=== PATIENT | male | born 1985 | race African-American/Black ===

== ENCOUNTER 2016-09-09 07:55 | Emergency (ER) | payer BC, OTHER ==
[~2016-09-09] VITALS: Ht 193 cm; Wt 95.0 kg
[~2016-09-09 07:55] MED LIST: BENZ100 PO; IBUP-232 PO; PENI500T PO; TYLE3 PO; Z.0.NO CURRENT MEDS; ZITH250T PO
[2016-09-09 07:58] VITALS: BP 127/81; PULSE 84; RESP 20; TEMP 98; O2SAT 96
[2016-09-09] MEDS ORDERED: CYCL5TAB PO (08:09)
[2016-09-09] MEDS ORDERED: KETOROLAC TROMETHAMINE 60 MG/2 ML (IM) VIAL IM ONE (08:15)
[2016-09-09] MEDS ORDERED: CYCL1TAB29 PO (08:15)
[2016-09-09] MEDS ORDERED: ORPHENADRINE INJ 60 MG/2 ML AMP IM ONE (08:15)
[2016-09-09] MEDS ORDERED: NAPR500T PO (08:15)
--- NOTE | 2016-09-09 08:17 | PD ---
HPI Chief Complaint: Back/ Neck Pain or Injury Time Seen by Provider: 08:15 Travel History International Travel<30 days: No Contact w/Intl Traveler<30days: No Traveled to known affect area: No History of Present Illness HPI 31-year-old male presents to the emergency department for evaluation of left lower back pain for 1 day. Patient states that yesterday he picked up a box and turned his torso and after he did this he felt pain in his left lower back. Describes it as a spasm and sharp pain. States it has been constant since yesterday aggravated with movement. Denies any alleviating factors. States that he does have a history of muscle spasms in his lower back. States that he took a Flexeril last night with minimal improvement of symptoms. He denies any fever, chills, nausea, vomiting, numbness or tingling, weakness, saddle anesthesia, bowel or bladder incontinence. No other complaints. PFSH Past Medical History Medical History: Denies Significant Hx Diminished Hearing: No Tetanus Vaccination: > 5 Years Past Surgical History Tonsillectomy: Yes Social History Alcohol Use: Yes (OCC) Tobacco Use: Yes (5 CIGS/DAY) Substance Use: No Allergies-Medications (Allergen,Severity, Reaction): Coded Allergies: No Known Allergies (Verified , 09/09/16) Reported Meds & Prescriptions Reported Meds & Active Scripts Active Flexeril (Cyclobenzaprine HCl) 10 Mg Tab 10 Mg PO TID 4 Days Naproxen 500 Mg Tab 500 Mg PO BID 7 Days Reported Flexeril (Cyclobenzaprine HCl) 5 Mg Tab 5 Mg PO TID Review of Systems Except as stated in HPI: all other systems reviewed are Neg Physical Exam Narrative GENERAL: Well-nourished and well-developed male patient in no acute distress. SKIN: Warm and dry. HEAD: Normocephalic and atraumatic. EYES: No injection, drainage, or hyphema noted. PERRLA. EOMI. ENT: No nasal drainage noted. Oropharynx is clear. NECK: Supple and the trachea is midline. CARDIOVASCULAR: Regular rate and rhythm. RESPIRATORY: Breath sounds are equal bilaterally with no accessory muscle use, wheezing, rhonchi, or crackles. MUSCULOSKELETAL: No obvious deformities, swelling, cyanosis, or ecchymosis is present throughout the upper and lower extremities. Patient has full range of motion without any signs of neurovascular compromise. Strength 5/5 upper and lower extremities equal bilaterally. BACK: Mild tenderness to palpation of left lumbar paraspinal muscles. No obvious deformities, bony point tenderness, or crepitus noted throughout the thoracic and lumbar vertebrae. NEUROLOGICAL: Awake, alert, and oriented. Normal speech and gait. Cranial nerves are grossly intact. Data Data Last Documented VS Vital Signs Date Time Temp Pulse Resp B/P Pulse Ox O2 Delivery O2 Flow Rate FiO2 09/09/16 07:58 98.0 84 20 127/81 96 Room Air Orders Ketorolac Inj (Toradol Inj) (09/09/16 08:15) Orphenadrine Inj (Norflex Inj) (09/09/16 08:15) MDM Medical Decision Making Medical Screen Exam Complete: Yes Emergency Medical Condition: Yes Differential Diagnosis Muscle strain versus muscle spasm versus discogenic pain Narrative Course 31-year-old male presents to the emergency department for evaluation of left lower back pain after bending and picking up a box yesterday. Patient is afebrile, vital signs are stable. No focal neurologic deficits. This is lumbar muscle strain. I did look the patient up on [facility] Drug Prescription Monitoring program which shows he filled a 28-day prescription for Oxycodone 20 mg just 4 days ago. Patient will be given Toradol 60 mg IM and Norflex 60 mg IM. He'll be discharged with Flexeril and naproxen. Instructed to follow-up with the PCP. Diagnosis Primary Impression: Lumbar strain Qualified Code: S39.012A - Lumbar strain, initial encounter Referrals: Primary Care Physician Patient Instructions: Acute Low Back Pain (ED), General Instructions Additional Instructions: Apply ice or heat to help alleviate symptoms. Take medications as prescribed with food and a full glass of water. Do not take Flexeril with alcohol or while driving. Follow-up with your Primary Care Physician. Return to the ED for any acute worsening of symptoms. Med/Other Pt SpecificInfo: Prescription(s) given Scripts Cyclobenzaprine (Flexeril)10 Mg Tab10 Mg PO TID 4 Days Ref 0 Prov:Erich Cai MD 09/09/16 Naproxen 500 Mg Qif189 Mg PO BID 7 Days Ref 0 Prov:Erich Cai MD 09/09/16 Disposition: DISCHARGE HOME Condition: Stable Lesley Laird Sep 09, 2016 08:17
== END 2016-09-09 08:56 | disposition home or self-care (01) ==
LOC: NEPB 07:55
DX: S39.012A Strain of muscle, fascia and tendon of lower back, initial encounter (principal); X50.0XXA Overexertion from strenuous movement or load, initial encounter; Z72.0 Tobacco use
CPT/HCPCS: 96372; 99283; J1885; J2360

== ENCOUNTER 2017-05-10 05:43 | Emergency (ER) | payer OTHER ==
[~2017-05-10] VITALS: Ht 182.9 cm; Wt 95.5 kg
[~2017-05-10 05:43] MED LIST changes: -BENZ100 PO; +CYCL1TAB29 PO; +CYCL5TAB PO; -IBUP-232 PO; +NAPR500T PO; -PENI500T PO; -TYLE3 PO; -Z.0.NO CURRENT MEDS; -ZITH250T PO
[2017-05-10 05:44] VITALS: BP 132/86; PULSE 78; RESP 16; TEMP 98.6; O2SAT 98
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
== END 2017-05-10 06:51 | disposition home or self-care (01) ==
LOC: NEPD 05:43
DX: M54.5 Low back pain (principal); V89.2XXA Person injured in unspecified motor-vehicle accident, traffic, initial encounter; Y92.410 Unspecified street and highway as the place of occurrence of the external cause
CPT/HCPCS: 99282